=== PATIENT | female | born 1980 | race Caucasian/White ===

== ENCOUNTER → 2018-03-08 | Outpatient (CLI) | payer BC ==
--- NOTE | 2018-03-08 12:23 | CARD ---
MR#: [id number] Date of Study: 03/08/2018 Ordering Physician: VEE SALGADO, Referring Physician: VEE SALGADO, Tech: NATACHA Anna APPROVED REPORT EXAM: Two-dimensional and M-mode echocardiogram with Doppler and color Doppler. Other Information Quality : GoodHR: 60bpm INDICATION Palpitations 2D DIMENSIONS Left Atrium(2D)2.8 (1.6-4.0cm)IVSd0.8 (0.7-1.1cm) Aortic Root(2D)2.5 (2.0-3.7cm)LVDd4.5 (3.9-5.9cm) LVOT Diameter2.0 (1.8-2.4cm)PWd0.8 (0.7-1.1cm) IVSs1.1 (0.8-1.2cm)LVDs3.2 (2.5-4.0cm) FS (%) 29.4 %PWs1.2 (0.8-1.2cm) SV52.0 mlLVEF(%)56.5 (>50%) Aortic Valve AoV Peak Nuno.117.9cm/sAoV VTI24.5cm AO Peak GR.5.6mmHgLVOT Peak Nuno.65.5cm/s LVOT VTI 15.23cmAO Mean GR.3mmHg LEO (VMAX)1.08pj2FKH (VTI)1.86cm2 Mitral Valve MV E Psoxirru80.7cm/sMV DECEL EROG401pt MV A Hzzkojbl96.1cm/sMV LTC57pp E/A Ratio2.2MVA (PHT)3.98cm2 TDI E/Lateral E'5.0E/Medial E'6.4 Pulmonary Valve PV Peak Qkdsyqym71.0cm/sPV Peak Grad.2mmHg Tricuspid Valve TR P. Uugzpurl341bo/sRAP QKATUFOC0lfRo TR Peak Gr.19xnBhBVZN07ucEl Pulmonary Vein S1 Iyfwmeia93.5cm/sD2 Nowchzpd04.2cm/s LEFT VENTRICLE The left ventricle is normal size. There is normal left ventricular wall thickness. The left ventricu lar systolic function is normal and the ejection fraction is within normal range. EF 55% There is nor mal LV segmental wall motion. The left ventricular diastolic function and filling is normal for age. No left ventricle thrombus noted on this study. RIGHT VENTRICLE The right ventricle is normal size. The right ventricular systolic function is normal. ATRIA The left atrium size is normal. The right atrium size is normal. The interatrial septum is intact wit h no evidence for an atrial septal defect or patent foramen ovale as noted on 2-D or Doppler imaging. AORTIC VALVE The aortic valve is normal in structure and function. Doppler and Color Flow revealed no significant aortic regurgitation. There is no significant aortic valvular stenosis. There is no aortic valvular v egetation. MITRAL VALVE The mitral valve is mildly thickened. There is no evidence of mitral valve prolapse. There is no mitr al valve stenosis. Doppler and Color-flow revealed trace mitral regurgitation. TRICUSPID VALVE The tricuspid valve is normal in structure and function. Doppler and Color Flow revealed trace tricus pid regurgitation. There is no pulmonary hypertension. The PA pressure was estimated at 24 mmHg. Ther e is no tricuspid valve prolapse or vegetation. There is no tricuspid valve stenosis. PULMONIC VALVE The pulmonic valve is not well visualized. Doppler and Color Flow revealed no pulmonic valvular regur gitation. There is no pulmonic valvular stenosis. GREAT VESSELS The aortic root is normal in size. The IVC is normal in size and collapses <50% with inspiration. PERICARDIAL EFFUSION There is no pleural effusion. There is no evidence of significant pericardial effusion. Critical Notification Critical Value: No <Conclusion> The left ventricular systolic function is normal and the ejection fraction is within normal range. EF 55% There is normal LV segmental wall motion. Signed by : Vee Salgado, Electronically Approved : 03/08/2018 12:21:34
== END | disposition home or self-care (01) ==
LOC: ECHO 11:20
PROVIDERS: ATTEND Internal Medicine Cardiovascular Disease
DX: R00.2 Palpitations (principal)
CPT/HCPCS: 93306